=== PATIENT | male | born 1990 | race Two or more races ===

== ENCOUNTER 2017-04-20 10:12 | Emergency (ER) | payer SELFPAY ==
[~2017-04-20] VITALS: Ht 185.4 cm; Wt 78.3 kg
[2017-04-20] MEDS ORDERED: BACITRACIN ZINC OINT UDPKT TOP ONE (11:30)
[2017-04-20] MEDS ORDERED: LIDOCAINE HCL 1% 20ML VIAL (Pyxis) INJ MC ONE (11:30)
[2017-04-20] MEDS ORDERED: IBUPROFEN 800MG TABLET PO ONE (11:30)
[2017-04-20 12:14] VITALS: BP 123/75
== END 2017-04-20 12:18 | disposition home or self-care (01) ==
LOC: ER 10:13
DX: K61.0 Anal abscess (principal)
CPT/HCPCS: 46050; 99284; J3490; Z7610